=== PATIENT | female | born 1955 | race Caucasian/White ===

== ENCOUNTER 2020-10-04 16:50 | Emergency (ER) | payer OTHER, MEDICARE ==
[2020-10-04 17:04] VITALS: BP 168/76; PULSE 81
[2020-10-04] MEDS ORDERED: Diphtheria,Pertussis(Acell),Tetanus Vaccine 0.5 ML SDV IM ONE (17:26)
--- NOTE | 2020-10-04 17:32 | EDM.PDOC ---
ED HPI GENERAL MEDICAL PROBLEM - General Chief Complaint: Laceration Stated Complaint: LEFT FINGER INJURY Time Seen by Provider: 10/04/20 17:09 Source of Information: Reports: Patient History Limitations: Reports: No Limitations - History of Present Illness INITIAL COMMENTS - FREE TEXT/NARRATIVE: Presents reporting laceration right index finger. 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 Distal tip laceration. She is otherwise healthy with no chronic medical problems. Right Finger-Index Pain Score (Numeric/FACES): 4 - Related Data Allergies Allergy/AdvReac Type Severity Reaction Status Date / Time No Known Allergies Allergy Verified 10/04/20 17:01 Home Meds: Home Meds Calcium Carbonate/Vitamin D3 [Caltrate 600 Plus D3 Tablet] 1 tab PO DAILY 11/09/14 [History] Lisinopril [Zestril] 10 mg PO DAILY 11/09/14 [History] Magnesium Oxide 400 mg PO DAILY 11/09/14 [History] Multivit-Min/FA/Lycopene/Lut [Centrum Silver] 1 tab PO DAILY 11/09/14 [History] Tamoxifen [Nolvadex] 20 mg PO DAILY 11/09/14 [History] amLODIPine Besylate [Norvasc] 5 mg PO DAILY 11/09/14 [History] Pain Patch Of Unknown Name 1 patch TRDERM BID 03/21/15 [History] traMADol [Ultram] 50 - 100 mg PO Q4H #50 tablet 03/22/15 [Rx] Past Medical History HEENT History: Reports: Impaired Vision Cardiovascular History: Reports: High Cholesterol, Hypertension Respiratory History: Reports: Pneumonia, Recurrent Gastrointestinal History: Reports: None Genitourinary History: Reports: None Other ADMISSIONS NURSE History: tubes tied Musculoskeletal History: Reports: Other (See Below) Other Musculoskeletal History: sciatic Neurological History: Reports: TIA Psychiatric History: Reports: None Endocrine/Metabolic History: Reports: None Oncologic (Cancer) History: Reports: Breast Dermatologic History: Reports: None - Infectious Disease History Infectious Disease History: Reports: Chicken Pox, Measles, Mumps Social & Family History - Tobacco Use Tobacco Use Status *Q: Never Tobacco User - Caffeine Use Caffeine Use: Reports: None - Recreational Drug Use Recreational Drug Use: No Review of Systems - Review of Systems Review Of Systems: Comprehensive ROS is negative, except as noted in HPI. ED EXAM, GENERAL - Physical Exam Exam: See Below Exam Limited By: No Limitations General Appearance: Alert, No Apparent Distress Ears: Normal External Exam Nose: Normal Inspection Throat/Mouth: Normal Inspection Head: Atraumatic, Normocephalic Neck: Normal Inspection Respiratory/Chest: No Respiratory Distress Cardiovascular: Normal Peripheral Pulses Extremities: Other (Right index finger: 2.5 cm superficial laceration. Full flex and extend without hesitation or limitation. Good capillary refill distally.) ED TRAUMA EXTREMITY PROCEDURES - Laceration/Wound Repair Right Distal Digit - 2nd (Index) Lac/Wound Length In cm: 2.5 Local Anesthesia - Lidocaine (Xylocaine): 1% Plain Skin Prep: Chlorhexidine (Hibiciens) Exploration/Debridement/Repair: Wound Explored, In a Bloodless Field, Explored to Base Closed With: Sutures Suture Size: 4-0 # of Sutures: 6 Suture Type: Nylon, Interrupted Course - Vital Signs Last Recorded V/S: Last Vital Signs Temp 36.2 C 10/04/20 17:02 Pulse 81 10/04/20 17:02 Resp 18 10/04/20 17:02 BP 168/76 H 10/04/20 17:02 Pulse Ox 95 10/04/20 17:02 - Orders/Labs/Meds Meds: Medications Discontinued Medications Generic Name Dose Route Start Last Admin Trade Name Yue PRN Reason Stop Dose Admin Lidocaine HCl 5 ml 10/04/20 17:15 Xylocaine-Mpf 1% INJECT 10/04/20 17:16 ONETIME ONE Departure - Departure Time of Disposition: 17:42 Disposition: Home, Self-Care 01 Condition: Good Clinical Impression: Laceration - Discharge Information Referrals: Nalini Durham [employer] [Primary Care Provider] - Forms: ED Department Discharge Additional Instructions: The following information is given to patients seen in the emergency department who are being discharged to home. This information is to outline your options for follow-up care. We provide all patients seen in our emergency department with a follow-up referral. The need for follow-up, as well as the timing and circumstances, are variable depending upon the specifics of your emergency department visit. If you don't have a primary care physician on staff, we will provide you with a referral. We always advise you to contact your personal physician following an emergency department visit to inform them of the circumstance of the visit and for follow-up with them and/or the need for any referrals to a consulting specialist. The emergency department will also refer you to a specialist when appropriate. This referral assures that you have the opportunity for follow-up care with a specialist. All of these measure are taken in an effort to provide you with optimal care, which includes your follow-up. Under all circumstances we always encourage you to contact your private physician who remains a resource for coordinating your care. When calling for follow-up care, please make the office aware that this follow-up is from your recent emergency room visit. If for any reason you are refused follow-up, please contact the [facility] Emergency Department at and asked to speak to the emergency department charge nurse. 1. Watch for signs of infection: Redness, swelling, purulent drainage report promptly 2. Elevate tonight to prevent swelling and throbbing 3. Suture removal 7 to 10 days at urgent care or ER or clinic Sepsis Event Note (ED) - Evaluation Sepsis Screening Result: No Definite Risk - Focused Exam Vital Signs: Vital Signs Temp Pulse Resp BP Pulse Ox 10/04/20 17:02 36.2 C 81 18 168/76 H 95
[2020-10-04] MEDS ORDERED: Diphtheria,Pertussis(Acell),Tetanus Vaccine 0.5 ML Syringe ONE (17:34)
[2020-10-04] MEDS ORDERED: Bacitracin Oint 1 GM U/D Packet TOP ONE (17:45)
== END 2020-10-04 18:07 | disposition home or self-care (01) ==
LOC: MW.ED 16:50
DX: S61.210A Laceration without foreign body of right index finger without damage to nail, initial encounter (principal); I10 Essential (primary) hypertension; Z86.73 Personal history of transient ischemic attack (TIA), and cerebral infarction without residual deficits; Z79.899 Other long term (current) drug therapy; Z23 Encounter for immunization; W23.0XXA Caught, crushed, jammed, or pinched between moving objects, initial encounter
CPT/HCPCS: 12001; 90471; 90715; 99282; 99282-25; J2001

== ENCOUNTER 2024-03-10 13:49 | Emergency (ER) | payer MEDICARE, OTHER ==
[2024-03-10] MEDS: Oxymetazoline 0.05% Nasal Spray 30 ML Bottle NAS STA (14:04)
[2024-03-10 14:45] LABS: BASOPHILS ABSOLUTE AUTO 0.03 K/uL (0.00-0.20); BASOPHILS PERCENT AUTO 0.6 % (0.0-1.0); EOSINOPHILS ABSOLUTE AUTO 0.17 K/uL (0.00-0.45); EOSINOPHILS PERCENT AUTO 3.2 % (0.0-6.0); HEMATOCRIT 42.1 % (37.0-47.0); HEMOGLOBIN 14.5 g/dL (12.0-16.0); IMMATURE GRAN ABSOLUTE AUTO 0.03 K/uL (0.00-0.05); IMMATURE GRAN PERCENT AUTO 0.6 % (0.0-0.4); LYMPHOCYTES ABSOLUTE AUTO 1.26 K/uL (1.00-4.80); LYMPHOCYTES PERCENT AUTO 23.7 % (24.0-44.0); MEAN CORPUSCULAR HEMOGLOBIN 30.6 pg (28.0-32.0); MEAN CORPUSCULAR HGB CONC 34.4 g/dL (32.0-36.0); MEAN CORPUSCULAR VOLUME 88.8 fL (83.0-99.0); MONOCYTES ABSOLUTE AUTO 0.43 K/uL (0.00-0.80); MONOCYTES PERCENT AUTO 8.1 % (0.0-8.0); NEUTROPHILS PERCENT AUTO 63.8 % (41.0-71.0); PLATELET COUNT,PLT 228 K/uL (150-400); RED BLOOD CELL COUNT 4.74 M/uL (4.10-5.30); WHITE BLOOD CELL COUNT,WBC 5.32 K/uL (3.9-11.3)
[2024-03-10 15:09] LABS: BLOOD UREA NITROGEN,BUN 25 mg/dL (7.0-18.0); CALCIUM 9.3 mg/dL (8.5-10.1); CARBON DIOXIDE,CO2 26.5 mmol/L (21.0-32.0); CHLORIDE,CL 106 mmol/L (98-107); CREATININE 0.8 mg/dL (0.6-1.0); GLUCOSE RANDOM 103 mg/dL (74-106); POTASSIUM,K 3.6 mmol/L (3.5-5.1); SODIUM,NA 142 mmol/L (136-145)
[2024-03-10 15:18] LABS: ESTIMATED GFR 79 mL/min (>60)
[2024-03-10 15:22] LABS: INR 0.95 (0.86-1.11); PTT,PARTIAL THROMBOPLSTIN TIME 26.1 SEC (23.9-30.7)
[2024-03-10 16:42] VITALS: BP 111/78; PULSE 85
== END 2024-03-10 17:03 | disposition home or self-care (01) ==
LOC: MW.ED 13:49
DX: R04.0 Epistaxis (principal); I10 Essential (primary) hypertension; E78.00 Pure hypercholesterolemia, unspecified; Z79.899 Other long term (current) drug therapy; Z86.73 Personal history of transient ischemic attack (TIA), and cerebral infarction without residual deficits
CPT/HCPCS: 36415; 80048; 85025; 85610; 85730; 86850; 86900; 86901; 99283; A9270